=== PATIENT | male | born 1975 | race Caucasian/White ===

== ENCOUNTER 2024-04-14 13:36 | Emergency (ER) | payer OTHER | END 2024-04-14 14:35 | disposition home or self-care (01) | LOC: EDBD 13:36 → JD.ED 13:36 | DX: G51.0 Bell's palsy (principal) | CPT/HCPCS: 82947; 99284 ==

== ENCOUNTER → 2025-02-01 | Day surgery (SDC) | payer OTHER ==
[~2025-02-01] MED LIST: Lactated Ringers 1,000 ML IV SCH; Lidocaine 1% 4 ML ONE; Ondansetron 4 MG/2 ML SDV IVPUSH PRN; Sodium Chloride 0.9% 10 ML Syringe FLUSH PRN; Sodium Chloride 0.9% 10 ML Syringe FLUSH SCH; fentaNYL 100 MCG/2 ML SDV IVPUSH PRN; propofoL 500 MG/50 ML 50 ML ONE
[2025-02-01] MEDS: Lactated Ringers 1,000 ML IV SCH (07:40)
== END | disposition home or self-care (01) ==
LOC: JD.SDS 07:22
PROVIDERS: ATTEND Surgery
DX: Z12.11 Encounter for screening for malignant neoplasm of colon (principal); D12.2 Benign neoplasm of ascending colon; D12.3 Benign neoplasm of transverse colon; D12.5 Benign neoplasm of sigmoid colon; D12.8 Benign neoplasm of rectum; K57.30 Diverticulosis of large intestine without perforation or abscess without bleeding; K64.8 Other hemorrhoids; R19.5 Other fecal abnormalities
CPT/HCPCS: 45380; 45381; 45385; J2003; J2704; J7120; 00811